=== PATIENT | male | born 1990 | race Two or more races ===

== ENCOUNTER 2022-03-31 06:40 | Emergency (ER) | payer OTHER ==
[~2022-03-31] VITALS: Ht 170.2 cm; Wt 68.0 kg
[2022-03-31] MEDS ORDERED: IV NORMAL SALINE 1000 ML BAG IV ONE ×2 (07:00→08:30)
[2022-03-31] MEDS ORDERED: LORAZEPAM 2 MG/1 ML VIAL IV ONE ×3 (07:00→10:45)
[2022-03-31] MEDS ORDERED: LORAZEPAM 2 MG/1 ML VIAL ONE ×3 (07:09→09:58)
[2022-03-31 07:11] LABS: HEMATOCRIT 44.5 % (36.7-47.1); MEAN CORPUSCULAR HEMOGLOBIN 33.2 uug (23.8-33.4); MEAN CORPUSCULAR VOLUME 95.5 fL (73.0-96.2); PLATELET COUNT (AUTO) 224 K/uL (152-348)
[2022-03-31 07:21] LABS: CARBON DIOXIDE 25 mmol/L (21-32); CHLORIDE 101 mmol/L (98-107); GLUCOSE 145 mg/dL (74-106); POTASSIUM 3.3 mmol/L (3.5-5.1); UREA NITROGEN, BLOOD 25 mg/dL (7-18)
[2022-03-31 07:30] LABS: ACETAMINOPHEN < 2.0 ug/mL (10-30)
--- NOTE | 2022-03-31 07:31 | NUR ---
1st contact with patient: alert, awake and admits to injecting meth prior to arrival to ER. Patient's respiration is easy, he moves all extremities, can sometimes be directed occasionally. Security assistance was notified.
[2022-03-31 07:39] LABS: ETHANOL < 3 MG/DL (0-0)
--- NOTE | 2022-03-31 08:38 | NUR ---
Arminda mckeon in EDM - 03/31/22 at 1403 by NIDIA Patient ambulated to bathroom with slow gait with one person holly. Patient is unable to provide urine still. Another bag of normal saline bag infusing well.
--- NOTE | 2022-03-31 08:38 | NUR ---
Patient ambulated to bathroom with slow gait with one person assist. Patient is unable to provide urine still. Another bag of normal saline bag infusing well.
--- NOTE | 2022-03-31 08:46 | NUR ---
Patient is HANNA patient per ER registration staff José. I called Moreno,( who is section crews activities clerk for Rehabilitation Services Manager for ER today ) said that since patient is a HANNA, [facility] has their own crisis dialysis social worker to address this patient's psych issues.
--- NOTE | 2022-03-31 09:28 | NUR ---
Breakfast tray@bedside
[2022-03-31] MEDS ORDERED: OLANZAPINE 5 MG TABLET ONE (10:06)
[2022-03-31 10:07] LABS: *AMPHETAMINE, URINE POSITIVE (NEGATIVE); *CANNABINOID, URINE NEGATIVE (NEGATIVE); *COCCAINE, URINE NEGATIVE (NEGATIVE); *OPIATE, URINE NEGATIVE (NEGATIVE); *PHENCYCLIDINE SCREEN,URINE NEGATIVE (NEGATIVE)
[2022-03-31] MEDS ORDERED: OLANZAPINE 5 MG TABLET PO ONE (10:15)
--- NOTE | 2022-03-31 10:24 | NUR ---
Note kandaceluz elena in EDM - 03/31/22 at 1404 by NIDIA Patient is seen walking all around ER department. Patient is seen touching the hospital equipment despite frequent reminders to stay on bed and not to touch the lines/equipment (e.g. ambubag[facility], oxygen meter/suction canister), and removing his therapetic lines (e.g. EKG, SpO2 probe, BP cuff). notified.
--- NOTE | 2022-03-31 10:24 | NUR ---
Patient is seen walking all around ER department. Patient is seen touching the hospital equipment despite frequent reminders to stay on bed and not to touch the lines/equipment (e.g. ambubag@the gurney, oxygen meter/suction canister), and removing his therapeutic lines (e.g. EKG, SpO2 probe, BP cuff). notified.
--- NOTE | 2022-03-31 10:30 | NUR ---
social worker aide Bonny is here in ER.
--- NOTE | 2022-03-31 11:09 | NUR ---
MONICA faxed the patient's clinical information to [facility] (fax: [phone]).
[2022-03-31] MEDS ORDERED: HALOPERIDOL LACTATE 5 MG/1 ML VIAL ONE (11:25)
--- NOTE | 2022-03-31 11:29 | NUR ---
Patient was seen standing on top of another gurney. He is directable but will not reliably follow safety contract. 1:1 sitter was ordered by . Nursing parking supervisor Herminia notified re: need for 1:1 sitter for this patient.
--- NOTE | 2022-03-31 11:40 | NUR ---
Crisis social organization professor Art is here in ER.
[2022-03-31] MEDS ORDERED: HALOPERIDOL LACTATE 5 MG/1 ML VIAL IM ONE (12:15)
--- NOTE | 2022-03-31 12:25 | NUR ---
Patient needs medical clearance for possible psych admission. We are now waiting for a callback from [facility] for available [facility] medical bed and assigned [facility] nurse.
--- NOTE | 2022-03-31 13:28 | NUR ---
Patient is resting comfortably on gurney with eyes closed. Patient is waiting for his [place] transfer information@this time from [facility].
--- NOTE | 2022-03-31 13:28 | NUR ---
Arminda mckeon in [facility] - 03/31/22 at 1406 by NIDIA Patient is resting comfortably on gunrey with eyes closed. Patient is waiting for [facility] transfer information@this time.
--- NOTE | 2022-03-31 16:26 | NUR ---
Patient will transfer to outside Facility: [facility] Physician: Dr Amna Guaman Location: ER department RN: Pardeep of [facility] accepted nursing report@[email or web address] ambulance ([place]) SCN=[id number] [place] EPRP: Lisa gave this transfer information
--- NOTE | 2022-03-31 17:23 | NUR ---
Patient is sleeping, easily arousable, respiration:easy. Updated ambulance CSC=[id number] per [place] EPRP Na.
--- NOTE | 2022-03-31 18:01 | NUR ---
[facility] ([facility] [id number]) is here. SBAR given to RIAZ Parker.
== END 2022-03-31 18:14 | disposition short-term general hospital (02) ==
LOC: ER 06:42
DX: T43.652A Poisoning by methamphetamines intentional self-harm, initial encounter (principal); T41.292A Poisoning by other general anesthetics, intentional self-harm, initial encounter; R41.82 Altered mental status, unspecified; Y92.89 Other specified places as the place of occurrence of the external cause; R00.0 Tachycardia, unspecified; Z20.822 Contact with and (suspected) exposure to COVID-19
CPT/HCPCS: 80048; 85025; 87426; 36415; 93005; 70450; 99285; 96361; 96374; 96376; 96372; 80299; 80320; 80307; J1630; J2060 ×3; J7040 ×2; A4663; G0480